=== PATIENT | male | born 1955 | race Caucasian/White ===

== ENCOUNTER 2018-11-16 11:04 | Day surgery (SDC) | payer MEDICARE ==
[2018-11-15 11:04] VITALS: BMI 19.2
[2018-11-16 11:55] LABS: #Basophils 0.1 thou/uL (0.0-0.2); #Eosinphils 0.2 thou/uL (0.0-0.7); #Lymphocytes 1.3 thou/uL (1.20-3.40); #Monocytes 0.4 thou/uL (0.11-0.59); #Neutrophils 8.4 thou/uL (1.40-6.50); %Basophils 0.6 % (0.0-1.0); %Eosinophils 1.8 % (0.0-10.0); %Lymphocytes 12.3 % (21.0-51.0); %Monocytes 3.9 % (0.0-10.0); %Neutrophils 81.4 % (42.0-75.0); Hemoglobin 13.1 g/dL (14.0-18.0); Mean Corpuscular Hemoglobin 25.8 pg (27.0-31.0); Mean Corpuscular Volume 83.4 fL (78.0-98.0); Mean Platelet Volume 6.7 fL (7.4-10.4); Platelet Count 417 thou/uL (130-400); RBC Distribution Width 14.8 % (11.5-14.5); Red Blood Cell (RBC) Count 5.07 mill/uL (4.70-6.10); White Blood Cell (WBC) Count 10.3 thou/uL (4.8-10.8)
[2018-11-16 11:57] LABS: INR-International Normal Ratio 1.2; PTT 36.3 SEC (22.9-36.1); Prothrombin Time 15.1 SEC (12.0-14.7)
[2018-11-16 12:15] LABS: Anion Gap 13 mmol/L (10-20); BUN (Urea Nitrogen) 8 mg/dL (8.4-25.7); Calc. Creatinine Clearance 104 mL/min (70-130); Calcium 9.5 mg/dL (7.8-10.44); Carbon Dioxide 30 mmol/L (23-31); Chloride 97 mmol/L (98-107); Estimated GFR-MDRD Greater than 90; Glucose 96 mg/dL (80-115); Potassium 3.9 mmol/L (3.5-5.1); Sodium 136 mmol/L (136-145)
[2018-11-16] MEDS ORDERED: PROPOFOL 200 MG/20 ML VIAL ONE (12:58)
[2018-11-16] MEDS ORDERED: Midazolam HCl 2 mg/2 ml Vial ONE (13:51)
[2018-11-16] MEDS ORDERED: Fentanyl 100 MCG/2 ML VIAL ONE (13:51)
[2018-11-16] MEDS ORDERED: PROPOFOL 20 ML ONE (13:56)
[2018-11-16] MEDS ORDERED: Propofol 500 MG/50 ML VIAL ONE (13:56)
--- NOTE | 2018-11-16 20:29 | EKG ---
Test Reason : DEFIB CHANGEOUT Blood Pressure : / mmHG Vent. Rate : 102 BPM Atrial Rate : 102 BPM P-R Int : 204 ms QRS Dur : 104 ms QT Int : 348 ms P-R-T Axes : 058 -24 103 degrees QTc Int : 453 ms Sinus tachycardia T wave abnormality, consider lateral ischemia ar Poor anterior R wave progression atrial abnormality Abnormal ECG When compared with ECG of 16-SEP-2014 16:15, Previous ECG has undetermined rhythm, needs review Questionable change in QRS axis ST elevation has replaced ST depression in Anterior leads Nonspecific T wave abnormality no longer evident in Inferior leads T wave inversion now evident in Anterolateral leads Confirmed by DR. Calin ALONSO ([id number]) on 11/16/2018 8:29:08 PM Referred By: [facility] Confirmed By:DR. Calin ALONSO
== END 2018-11-16 16:23 | disposition home or self-care (01) ==
LOC: CCL 11:04
PROVIDERS: ATTEND Internal Medicine Cardiovascular Disease
PROC: 0JPT0PZ Removal of Cardiac Rhythm Related Device from Trunk Subcutaneous Tissue and Fascia, Open Approach (ICD-10-PCS; principal; 2018-11-16)
PROC: 0JH609Z Insertion of Cardiac Resynchronization Defibrillator Pulse Generator into Chest Subcutaneous Tissue and Fascia, Open Approach (ICD-10-PCS; 2018-11-16)
DX: Z45.02 Encounter for adjustment and management of automatic implantable cardiac defibrillator (principal); I50.22 Chronic systolic (congestive) heart failure; I42.8 Other cardiomyopathies; I48.0 Paroxysmal atrial fibrillation; J44.9 Chronic obstructive pulmonary disease, unspecified; F17.210 Nicotine dependence, cigarettes, uncomplicated; M19.90 Unspecified osteoarthritis, unspecified site; E03.9 Hypothyroidism, unspecified; Z79.01 Long term (current) use of anticoagulants; Z79.82 Long term (current) use of aspirin; Z79.899 Other long term (current) drug therapy; Z88.1 Allergy status to other antibiotic agents
CPT/HCPCS: 33263; 36415; 80048; 85025; 85610; 85730; 93005; 93010; 93642; C1721; J2250; J2704; J3010; J3490